=== PATIENT | female | born 1985 | race Two or more races ===

== ENCOUNTER 2017-08-03 15:03 | Outpatient (CLI) | payer OTHER | END 2017-08-03 15:12 | disposition home or self-care (01) | LOC: RAD 15:03 | DX: D48.0 Neoplasm of uncertain behavior of bone and articular cartilage (principal); Z98.890 Other specified postprocedural states ==

== ENCOUNTER → 2020-04-05 | Outpatient (CLI) | payer OTHER | END | disposition home or self-care (01) | LOC: PRENATAL 14:24 | PROVIDERS: ATTEND Obstetrics & Gynecology Maternal & Fetal Medicine | DX: Z36.89 Encounter for other specified antenatal screening (principal); O36.80X1 Pregnancy with inconclusive fetal viability, fetus 1; O09.521 Supervision of elderly multigravida, first trimester; Z3A.13 13 weeks gestation of pregnancy ==

== ENCOUNTER → 2020-05-24 | Outpatient (CLI) | payer OTHER | END | disposition home or self-care (01) | LOC: PRENATAL 15:30 | PROVIDERS: ATTEND Obstetrics & Gynecology Maternal & Fetal Medicine | DX: O35.0XX1 Maternal care for (suspected) central nervous system malformation in fetus, fetus 1 (principal); O35.3XX1 Maternal care for (suspected) damage to fetus from viral disease in mother, fetus 1; O98.512 Other viral diseases complicating pregnancy, second trimester; O09.522 Supervision of elderly multigravida, second trimester; Z36.89 Encounter for other specified antenatal screening; Z3A.20 20 weeks gestation of pregnancy ==

== ENCOUNTER → 2020-07-24 | Outpatient (CLI) | payer OTHER | END | disposition home or self-care (01) | LOC: PRENATAL 09:00 | PROVIDERS: ATTEND Obstetrics & Gynecology Maternal & Fetal Medicine | DX: O26.843 Uterine size-date discrepancy, third trimester (principal); O09.523 Supervision of elderly multigravida, third trimester; O28.1 Abnormal biochemical finding on antenatal screening of mother; Z36.89 Encounter for other specified antenatal screening; Z3A.28 28 weeks gestation of pregnancy ==

== ENCOUNTER → 2020-09-21 | Outpatient (CLI) | payer OTHER ==
[~2020-09-21] MED LIST: DOCUSATE SODIU100 MG PO; FERROUS SULFAT325 M1 PO; IRON325 MG PO; KETO10TA2 PO; PRENATAL TABLE1 EAC1 PO; URSO250 MG PO
== END | disposition home or self-care (01) ==
LOC: PRENATAL 13:29
PROVIDERS: ATTEND Obstetrics & Gynecology Maternal & Fetal Medicine
DX: O26.843 Uterine size-date discrepancy, third trimester (principal); O35.0XX1 Maternal care for (suspected) central nervous system malformation in fetus, fetus 1; O36.8131 Decreased fetal movements, third trimester, fetus 1; O26.613 Liver and biliary tract disorders in pregnancy, third trimester; O09.512 Supervision of elderly primigravida, second trimester; Z36.89 Encounter for other specified antenatal screening; Z3A.36 36 weeks gestation of pregnancy

== ENCOUNTER 2020-09-24 11:46 | Outpatient (CLI) | payer OTHER ==
[~2020-09-24 11:46] MED LIST changes: -DOCUSATE SODIU100 MG PO; -FERROUS SULFAT325 M1 PO; -IRON325 MG PO; -KETO10TA2 PO; -PRENATAL TABLE1 EAC1 PO
== END 2020-09-24 19:34 | disposition home or self-care (01) ==
LOC: OBS/DEL 11:46
PROVIDERS: ATTEND Obstetrics & Gynecology
DX: O47.1 False labor at or after 37 completed weeks of gestation (principal); Z3A.37 37 weeks gestation of pregnancy

== ENCOUNTER 2020-09-27 16:58 | Inpatient (IN) | payer OTHER ==
[~2020-09-27] VITALS: Ht 160 cm; Wt 2.7 kg
[2020-09-27] MEDS ORDERED: PRENATAL TABLE1 EAC1 PO (19:07)
[2020-09-27] MEDS ORDERED: IRON325 MG PO (19:07)
[2020-10-01] MEDS ORDERED: DOCUSATE SODIU100 MG PO (12:26)
[2020-10-01] MEDS ORDERED: URSO250 MG PO (12:26)
[2020-10-01] MEDS ORDERED: KETO10TA2 PO (12:26)
[2020-10-01] MEDS ORDERED: FERROUS SULFAT325 M1 PO (12:26)
[2020-10-01] MEDS ORDERED: PRENATAL TABLE1 EAC1 PO (12:27)
== END 2020-10-01 13:26 | disposition home or self-care (01) | DRG 786 ==
LOC: O/R 16:58 → LDR 16:58 → O/R 09-28 08:51 → OB/GYN 09-28 12:57
PROVIDERS: ADMIT Obstetrics & Gynecology; ATTEND Obstetrics & Gynecology
PROC: 3E0P7VZ Introduction of Hormone into Female Reproductive, Via Natural or Artificial Opening (ICD-10-PCS; 2020-09-27)
PROC: 4A1HXFZ Monitoring of Products of Conception, Cardiac Rhythm, External Approach (ICD-10-PCS; 2020-09-27)
PROC: 3E033VJ Introduction of Other Hormone into Peripheral Vein, Percutaneous Approach (ICD-10-PCS; 2020-09-28)
PROC: 10D00Z1 Extraction of Products of Conception, Low, Open Approach (ICD-10-PCS; principal; 2020-09-28 09:00)
DX: O76 Abnormality in fetal heart rate and rhythm complicating labor and delivery (principal); O26.62 Liver and biliary tract disorders in childbirth; K83.1 Obstruction of bile duct; Z3A.37 37 weeks gestation of pregnancy; Z37.0 Single live birth

== ENCOUNTER 2021-09-24 12:14 | Outpatient (CLI) | payer OTHER ==
[~2021-09-24 12:14] MED LIST changes: +DOCUSATE SODIU100 MG PO; +FERROUS SULFAT325 M1 PO; +IRON325 MG PO; +KETO10TA2 PO; +PRENATAL TABLE1 EAC1 PO
== END 2021-09-24 13:05 | disposition home or self-care (01) ==
LOC: NST 12:14
PROVIDERS: ATTEND Obstetrics & Gynecology
DX: Z34.83 Encounter for supervision of other normal pregnancy, third trimester (principal)

== ENCOUNTER 2021-10-17 11:46 | Outpatient (CLI) | payer OTHER | END 2021-10-17 13:34 | disposition home or self-care (01) | LOC: NST 11:46 | PROVIDERS: ATTEND Obstetrics & Gynecology Gynecology | DX: Z34.83 Encounter for supervision of other normal pregnancy, third trimester (principal) ==

== ENCOUNTER 2021-10-31 10:15 | Inpatient (IN) | payer OTHER ==
[~2021-10-31] VITALS: Ht 160 cm; Wt 3.6 kg
[2021-11-08] MEDS ORDERED: PRENA1 TRUE CO1 EACH PO (11:49)
[2021-11-10] MEDS ORDERED: KETO10TA2 PO (09:37)
[2021-11-10] MEDS ORDERED: OXYC1TAB9 PO (09:37)
== END 2021-11-10 13:47 | disposition home or self-care (01) | DRG 788 ==
LOC: EDSTATUS 10:15 → OB/GYN 11-08 09:30 → O/R 11-08 11:02 → OB/GYN 11-08 11:02
PROVIDERS: ADMIT Obstetrics & Gynecology Maternal & Fetal Medicine; ATTEND Obstetrics & Gynecology Maternal & Fetal Medicine
PROC: 4A1HXCZ Monitoring of Products of Conception, Cardiac Rate, External Approach (ICD-10-PCS; 2021-11-08)
PROC: 10D00Z1 Extraction of Products of Conception, Low, Open Approach (ICD-10-PCS; principal; 2021-11-08 09:30)
DX: O34.211 Maternal care for low transverse scar from previous cesarean delivery (principal); Z3A.39 39 weeks gestation of pregnancy; Z37.0 Single live birth; Z20.822 Contact with and (suspected) exposure to COVID-19

== ENCOUNTER 2022-02-13 12:37 | Outpatient (CLI) | payer OTHER ==
[~2022-02-13 12:37] MED LIST changes: +OXYC1TAB9 PO; +PRENA1 TRUE CO1 EACH PO
== END 2022-02-13 12:44 | disposition home or self-care (01) ==
LOC: RAD 12:37
PROVIDERS: ATTEND Orthopaedic Surgery Sports Medicine
DX: M76.51 Patellar tendinitis, right knee (principal)